=== PATIENT | female | born 1955 | race Caucasian/White ===

== ENCOUNTER 2018-03-26 08:01 | Day surgery (SDC) | payer MEDICAID ==
[~2018-03-26] VITALS: Ht 152.4 cm; Wt 59.9 kg
[~2018-03-26 08:01] MED LIST: ACET-2178 PO
[2018-03-26] MEDS ORDERED: LACTATED RINGERS 1,000 ML IV SCH (08:30)
[2018-03-26] MEDS ORDERED: SODIUM CHLORIDE 0.9% 1,000 ML IV SCH (09:45)
[2018-03-26] MEDS ORDERED: MORPHINE SULFATE/PF 1MG/ML 10ML AMP ONE (10:03)
[2018-03-26] MEDS ORDERED: BUPIVACAINE HCL/EPINEPHRINE/PF 0.5%/0.0005 10ML ONE (10:04)
[2018-03-26] MEDS ORDERED: SKIN ADHESIVE 0.7 GM EA TOP ONE (10:04)
[2018-03-26] MEDS ORDERED: FENTANYL CITRATE/PF 50MCG/ML 2ML VIAL ONE (12:00)
[2018-03-26] MEDS ORDERED: GLYCOPYRROLATE 0.2 MG/ML 2ML VIAL ONE (12:00)
[2018-03-26] MEDS ORDERED: MIDAZOLAM HCL 2 MG/2 ML VIAL ONE (12:00)
[2018-03-26] MEDS ORDERED: PROPOFOL 200MG/20ML VIAL IV ONE (12:00)
[2018-03-26] MEDS ORDERED: SUCCINYLCHOLINE CHLORIDE 200MG/10ML VIAL IV ONE (12:01)
[2018-03-26] MEDS ORDERED: ONDANSETRON HCL 4MG/2ML VIAL ONE ×2 (12:01→13:47)
[2018-03-26] MEDS ORDERED: METOCLOPRAMIDE HCL 10MG/2ML VIAL ONE (12:01)
[2018-03-26] MEDS ORDERED: SODIUM CHLORIDE 0.9% 1,000 ML IV ONE (13:32)
[2018-03-26] MEDS ORDERED: HYDROMORPHONE HCL/PF 2MG/ML CPJ IV PRN (13:45)
[2018-03-26] MEDS ORDERED: MEPERIDINE HCL/PF 25MG/ML CPJ IV PRN ×2 (13:45)
[2018-03-26] MEDS ORDERED: ONDANSETRON HCL 4MG/2ML VIAL IV PRN (13:45)
[2018-03-26] MEDS: MORPHINE SULFATE 4 MG/ML CPJ (NOT FOR IM USE) IV PRN ×4 (13:48→14:57)
[2018-03-26 14:57] VITALS: BP 115/46
== END 2018-03-26 15:30 | disposition home or self-care (01) ==
LOC: OR 08:01
PROVIDERS: ATTEND Orthopaedic Surgery
DX: M23.222 Derangement of posterior horn of medial meniscus due to old tear or injury, left knee (principal); M94.262 Chondromalacia, left knee; M65.862 Other synovitis and tenosynovitis, left lower leg; Z90.49 Acquired absence of other specified parts of digestive tract; Z88.0 Allergy status to penicillin; F17.210 Nicotine dependence, cigarettes, uncomplicated; M19.90 Unspecified osteoarthritis, unspecified site; Z91.048 Other nonmedicinal substance allergy status; Z98.890 Other specified postprocedural states; Z79.899 Other long term (current) drug therapy; Z88.8 Allergy status to other drugs, medicaments and biological substances
CPT/HCPCS: 29877; 82962; 88305; 88311; 97116; G0168; J0171; J0330; J2250; J2270; J2405; J2765; J3010; J3490; J7030; L1830; J2274; J2704

== ENCOUNTER 2019-09-21 07:25 | Inpatient (IN) | payer MEDICARE, MEDICAID ==
[~2019-09-21] VITALS: Ht 152.4 cm; Wt 59.4 kg
[~2019-09-21 07:25] MED LIST changes: -ACET-2178 PO; +TOPUD PO
[2019-09-21] MEDS ORDERED: TRANEXAMIC ACID 1,000 MG in SODIUM CHLORIDE 0.9% 100 ML IV SCH (07:30)
[2019-09-21] MEDS ORDERED: IBUP-2029 PO (09:44)
[2019-09-21 09:48] LABS: CLARITY URINE CLOUDY (CLEAR); COLOR URINE YELLOW (YELLOW); KETONES URINE NEGATIVE (NEGATIVE); LEUKOCYTE ESTERASE URINE TRACE (NEGATIVE); NITRITE URINE NEGATIVE (NEGATIVE); OCCULT BLOOD URINE 1+ (NEGATIVE); PROTEIN URINE NEGATIVE (NEGATIVE); SPECIFIC GRAVITY URINE 1.017 (1.005-1.030); UROBILINOGEN URINE 0.2 E.U./dL (0.2-1.0)
[2019-09-21 10:11] LABS: EOSINOPHILS % 5.7 % (0.0-5.0); HEMATOCRIT. 35.5 % (36.0-48.0); LYMPHOCYTES % 27.8 % (20.0-50.0); MEAN CORPUSCULAR HEMOGLOBIN 29.4 pg (28.0-32.0); MEAN CORPUSCULAR VOLUME 87.1 fL (81.0-99.0); MEAN PLATELET VOLUME 8.2 fl (7.4-10.4); MONOCYTES % 5.4 % (2.0-8.0); NEUTROPHILS % 60.1 % (40.0-76.0); PLATELET 285 x1000/uL (130-400); RED BLOOD CELL COUNT 4.07 mill/uL (4.2-5.4); RED CELL DISTRIBUTION WIDTH 13.5 % (11.6-14.6)
[2019-09-21] MEDS ORDERED: BUPIVACAINE/EPINEPH/PF 0.25%/0.0005 10ML ONE ×2 (10:53→12:06)
[2019-09-21] MEDS ORDERED: CLINDAMYCIN 900 MG PREMIX 50 ML IV ONE (10:53)
[2019-09-21] MEDS ORDERED: EPINEPHRINE 1:1000 1 MG/ML AMP ONE (10:54)
[2019-09-21] MEDS ORDERED: VANCOMYCIN HCL 1 GM/VIAL ONE ×2 (10:55→10:59)
[2019-09-21] MEDS ORDERED: BACITRACIN 50,000 UNITS/VIAL ONE (10:57)
[2019-09-21] MEDS: LACTATED RINGERS 1,000 ML IV SCH ×2 (11:15→22:53)
[2019-09-21] MEDS ORDERED: METHYLENE BLUE 50 MG/10 ML AMP IV ONE (12:05)
[2019-09-21] MEDS ORDERED: MORPHINE SULFATE/PF 1MG/ML 10ML AMP ONE (12:05)
[2019-09-21] MEDS ORDERED: BUPIVACAINE HCL/DEXTROSE/PF 0.75% 2ML AMP INJ ONE (12:11)
[2019-09-21] MEDS ORDERED: ROPIVACAINE HCL 10MG/ML 20 ML VIAL EPI ONE (12:11)
[2019-09-21] MEDS ORDERED: ROCURONIUM BROMIDE 10MG/ML VIAL 5ML IV ONE (12:17)
[2019-09-21] MEDS ORDERED: PROPOFOL 200MG/20ML VIAL IV ONE (12:17)
[2019-09-21] MEDS ORDERED: FENTANYL CITRATE/PF 50MCG/ML 2ML VIAL ONE ×2 (12:17→14:46)
[2019-09-21] MEDS ORDERED: NEOSTIGMINE METHYLSULFATE 1MG/ML 10 ML VIAL ONE ×2 (12:17→15:49)
[2019-09-21] MEDS ORDERED: MIDAZOLAM HCL 2 MG/2 ML VIAL ONE (12:17)
[2019-09-21] MEDS ORDERED: SODIUM CHLORIDE 0.9% 10ML VIAL ONE (12:18)
[2019-09-21] MEDS ORDERED: PHENYLEPHRINE HCL 10 MG/ML 1ML (IV VIAL) IV ONE (12:18)
[2019-09-21] MEDS ORDERED: ONDANSETRON HCL 4MG/2ML INJ ONE (12:18)
[2019-09-21] MEDS ORDERED: LIDOCAINE HCL/PF 1% 10 MG/ML 5ML VIAL ONE (12:18)
[2019-09-21] MEDS ORDERED: DEXAMETHASONE 4MG/ML 1ML VIAL ONE (12:18)
[2019-09-21] MEDS ORDERED: SUCCINYLCHOLINE CHLORIDE 200MG/10ML IV ONE (12:18)
[2019-09-21] MEDS ORDERED: METOCLOPRAMIDE HCL 10MG/2ML VIAL ONE (12:18)
[2019-09-21] MEDS ORDERED: GLYCOPYRROLATE 0.2 MG/ML 2ML VIAL ONE ×2 (12:18→15:49)
[2019-09-21] MEDS ORDERED: EPHEDRINE SULFATE 50MG/ML VIAL ONE (12:18)
[2019-09-21] MEDS ORDERED: BUPIVACAINE HCL/PF 0.25% (2.5MG/ML) 10ML ONE (12:39)
[2019-09-21] MEDS ORDERED: GENTAMICIN SULF 40MG/ML 2ML VIAL ONE (14:01)
[2019-09-21] MEDS ORDERED: HYDROMORPHONE PCA 10MG/50ML IV PRN (16:25)
[2019-09-21] MEDS ORDERED: DIPHENHYDRAMINE INJ IV PRN (16:25)
[2019-09-21] MEDS ORDERED: ONDANSETRON INJ IV PRN (16:26)
[2019-09-21] MEDS ORDERED: NALOXONE INJ IV PRN (16:26)
[2019-09-21] MEDS ORDERED: ONDANSETRON HCL 4MG/2ML INJ IV PRN (16:30)
[2019-09-21] MEDS ORDERED: ACETAMINOPHEN 325MG TABLET PO PRN (16:30)
[2019-09-21] MEDS ORDERED: MAGNESIUM HYDROXIDE 400MG/5ML 30ML UDC PO PRN (18:00)
[2019-09-21] MEDS ORDERED: HYDROCODONE/ACETAMINOPHEN 5/325MG TABLET PO PRN ×2 (18:00)
[2019-09-21 20:00] VITALS: BP_SYST 109; BP_DIAS 61; BP_DIAS 66
[2019-09-21] MEDS ORDERED: ZOLPIDEM TARTRATE 5MG TABLET PO PRN (21:00)
[2019-09-21] MEDS: DOCUSATE SODIUM 100MG CAPSULE PO SCH (22:47)
[2019-09-21] MEDS: LEVOFLOXACIN 500MG PREMIX 100 ML IV SCH (23:41)
[2019-09-21 23:59] LABS: CHLORIDE 103 mEq/L (98-107)
[2019-09-22] VITALS: BP 120/57
[2019-09-22] MEDS: CLINDAMYCIN 900 MG in DEXTROSE 5% WATER 50 ML IV SCH ×2 (00:43→09:34)
[2019-09-22] MEDS ORDERED: HYDROCODONE/ACETAMINOPHEN 5/325MG TABLET PO PRN (02:30)
[2019-09-22 04:00] VITALS: BP 103/51
[2019-09-22 07:46] LABS: BASOPHILS % 0.7 % (0.0-2.0); EOSINOPHILS % 2.2 % (0.0-5.0); HEMATOCRIT. 29.7 % (36.0-48.0); HEMOGLOBIN. 10.5 g/dL (12.0-16.0); LYMPHOCYTES % 11.8 % (20.0-50.0); MEAN CORPUSCULAR HEMOGLOBIN 30.6 pg (28.0-32.0); MEAN CORPUSCULAR VOLUME 86.8 fL (81.0-99.0); MEAN PLATELET VOLUME 8.3 fl (7.4-10.4); MONOCYTES % 9.2 % (2.0-8.0); NEUTROPHILS % 76.1 % (40.0-76.0); PLATELET 239 x1000/uL (130-400); RED BLOOD CELL COUNT 3.42 mill/uL (4.2-5.4); RED CELL DISTRIBUTION WIDTH 13.5 % (11.6-14.6)
[2019-09-22 07:57] LABS: CHLORIDE 99 mEq/L (98-107)
[2019-09-22 08:00] VITALS: BP 136/61
[2019-09-22] MEDS: DOCUSATE SODIUM 100MG CAPSULE PO SCH ×2 (09:34→17:12)
[2019-09-22] MEDS: ENOXAPARIN 30MG/0.3ML SYR SUBCUT SCH ×2 (09:43→21:43)
[2019-09-22 12:00] VITALS: BP 134/63
[2019-09-22] MEDS ORDERED: INFLUENZA VIRUS VACCINE(AFLURIA) 0.5ML SYR IM ONE (12:00)
[2019-09-22] MEDS ORDERED: PNEUMOCOCCAL 23-VAL P-SAC VAC 0.5 ML IM ONE (12:00)
[2019-09-22] MEDS: HYDROCODONE/ACETAMINOPHEN 5/325MG TABLET PO PRN ×3 (12:53→21:35)
[2019-09-22 16:00] VITALS: BP 130/60
[2019-09-22 20:00] VITALS: BP 127/52
[2019-09-22] MEDS: LEVOFLOXACIN 500MG PREMIX 100 ML IV SCH (21:41)
[2019-09-23] VITALS: BP 112/51
[2019-09-23] MEDS: HYDROCODONE/ACETAMINOPHEN 5/325MG TABLET PO PRN ×3 (02:19→11:00)
[2019-09-23 04:00] VITALS: BP 110/53
[2019-09-23 08:00] VITALS: BP 115/52
[2019-09-23] MEDS: DOCUSATE SODIUM 100MG CAPSULE PO SCH (08:50)
[2019-09-23] MEDS: ENOXAPARIN 30MG/0.3ML SYR SUBCUT SCH (08:50)
[2019-09-23 09:40] VITALS: BP 115/52
[2019-09-23 12:00] VITALS: BP 128/62
[2019-09-23] MEDS ORDERED: LEVOFLOXACIN 500MG TABLET PO SCH (15:00)
== END 2019-09-23 14:30 | disposition home or self-care (01) | DRG 470 ==
LOC: OR 07:25 → 6EST 21:39
PROVIDERS: ADMIT Internal Medicine; ATTEND Internal Medicine
PROC: 0SRD0J9 Replacement of Left Knee Joint with Synthetic Substitute, Cemented, Open Approach (ICD-10-PCS; principal; 2019-09-21)
DX: M17.12 Unilateral primary osteoarthritis, left knee (principal); R71.0 Precipitous drop in hematocrit; M65.9 Synovitis and tenosynovitis, unspecified; G89.29 Other chronic pain; I10 Essential (primary) hypertension; F17.210 Nicotine dependence, cigarettes, uncomplicated; M21.00 Valgus deformity, not elsewhere classified, unspecified site; K21.9 Gastro-esophageal reflux disease without esophagitis; R73.9 Hyperglycemia, unspecified; Z88.0 Allergy status to penicillin; Z90.49 Acquired absence of other specified parts of digestive tract; Z79.899 Other long term (current) drug therapy; Z88.8 Allergy status to other drugs, medicaments and biological substances; Z90.721 Acquired absence of ovaries, unilateral
CPT/HCPCS: 36415; 73560; 80048; 81003; 86850; 86900; 88305; 88311; 97116; 97162; 97166; 97535; C1713; C1776; J0171; J0330; J1100; J1170; J1580; J1650; J1956; J2250; J2274; J2370; J2405; J2704; J2710; J2765; J2795; J3010; J3370; J3490; J7050; J7060; L1830; Q9968